=== PATIENT | male | born 1990 ===

== ENCOUNTER 2018-08-21 23:36 | Emergency (ER) | payer MEDICAID ==
[2018-08-21 23:42] VITALS: RESP 18
[2018-08-22] MEDS ORDERED: Lidocaine 1% Inj (20ml) ONE (00:10)
[2018-08-22] MEDS ORDERED: Lidocaine/Epi 1% 1:100000 20 ML IJ ONE (00:21)
[2018-08-22] MEDS ORDERED: Tdap Vaccine 0.5 ml Vial (10-64 yrs) IM ONE ×2 (00:22→00:43)
--- NOTE | 2018-08-22 01:18 | ED PDOC ---
HPI: Trauma/Fall - HPI Time Seen by Provider: 08/21/18 23:46 Chief Complaint (Nursing): Trauma Chief Complaint (Provider): head trauma with laceration History Per: Patient History/Exam Limitations: no limitations Onset/Duration Of Symptoms: Hrs (1) Additional Complaint(s): 27 y/o M with no PMH who presents after fall onto metal steps with head trauma. 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 He states that he was dazed but denies LOC, dizziness, POZO, visual changes, N/V. He further tayler hx of HTN, CAD/NV, asthma. - Fall Fall:Prior To Injury: Tripped. denies: Passed Out, [place] Lightheaded Past Medical History Reviewed: Historical Data, Nursing Documentation, Vital Signs Vital Signs: Last Vital Signs Temp 99.1 F 08/21/18 23:40 Pulse 90 08/21/18 23:40 Resp 18 08/21/18 23:40 BP 145/86 08/21/18 23:40 Pulse Ox 98 08/21/18 23:40 - Medical History PMH: HTN (prior history but no longer and on no meds) Denies: Chronic Kidney Disease - Family History Family History: States: Unknown Family Hx - Social History Current smoker - smoking cessation education provided: No Ex-Smoker (has not smoked in the last 12 months): No Alcohol: None Drugs: Denies - Immunization History Hx Tetanus Toxoid Vaccination: No - Home Medications Home Medications: Ambulatory Orders Medication Instructions Recorded Ibuprofen [Motrin Tab] 600 mg PO Q6H PRN 5 Days tab 08/22/18 - Allergies Allergies/Adverse Reactions: Allergies Allergy/AdvReac Type Severity Reaction Status Date / Time No Known Allergies Allergy Verified 08/21/18 23:39 Review of Systems ROS Statement: Except As Marked, All Systems Reviewed And Found Negative Neurological: Positive for: Headache (localized to Left side of head). Negative for: Weakness, Numbness, Incoordination, Change in Speech, Confusion, Altered Mental Status, Dizziness Physical Exam - Reviewed Nursing Documentation Reviewed: Yes Vital Signs Reviewed: Yes - Physical Exam Appears: Positive for: Well Head Exam: Negative for: ATRAUMATIC (approx 4.5cm linear laceration on Left side of skull, bleeding briskly, associated swelling. ) Skin: Positive for: Normal Color Eye Exam: Positive for: EOMI. Negative for: Nystagmus, Conjunctival injection Neck: Positive for: Normal, Painless ROM Back: Positive for: Normal Inspection Neurologic/Psych: Positive for: Alert, Oriented, Other (strength = in B/L upper and lower extremities). Negative for: Motor/Sensory Deficits - ECG O2 Sat by Pulse Oximetry: 98 Medical Decision Making Medical Decision Making: Scalp francine Tetanus Toradol 30mg IM Procedures - Laceration/Wound Repair Left Head Wound Length (cm): 4.5 Wound's Depth, Shape: superficial, linear Wound Explored: clean Irrigated w/ Saline (ccs): 100 Betadine Prep?: Yes Anesthesia: Lidocaine w/ Epi Volume Anesthetic (ccs): 5 Wound Repaired With: Francine (6) Layer Closure?: No Wound Complexity: Simple Disposition - Clinical Impression Clinical Impression: Laceration of head - Patient ED Disposition Is Patient to be Admitted: No Counseled Patient/Family Regarding: Studies Performed, Diagnosis, Need For Followup, Rx Given - Disposition Disposition: Routine/Home Disposition Time: 02:00 Condition: STABLE Additional Instructions: [place] should be removed in 5 days, can go to PMD or return to ER. Do not wash your hair for 24hrs and then can use gentle soap and water on wound. Keep the area dry. Return to ER if you develop N/V, general POZO, dizziness, visual problems. Prescriptions: Ibuprofen [Motrin Tab] 600 mg PO Q6H PRN 5 Days tab PRN Reason: Pain, Moderate (4-7) Instructions: Minor Head Injury (DC) Forms: [employer] (Hebrew) Print Language: ALGERIAN
[2018-08-22 02:21] VITALS: BP 148/87; PULSE 65; TEMP 98.1; O2SAT 97
== END 2018-08-22 02:05 | disposition home or self-care (01) ==
LOC: H.ER 23:36
DX: S01.01XA Laceration without foreign body of scalp, initial encounter (principal); W01.198A Fall on same level from slipping, tripping and stumbling with subsequent striking against other object, initial encounter; Y93.72 Activity, wrestling; I10 Essential (primary) hypertension; Z87.891 Personal history of nicotine dependence; Z23 Encounter for immunization
CPT/HCPCS: 12002; 90471; 90715; 96372; 99284; J1885

== ENCOUNTER 2018-08-27 14:12 | Emergency (ER) | payer BC, MEDICAID ==
[2018-08-27 14:28] VITALS: TEMP 97.8
--- NOTE | 2018-08-27 14:37 | ED PDOC ---
HPI: Wound Care - HPI Time Seen by Provider: 08/27/18 14:28 Chief Complaint (Nursing): Suture/Staple Removal Chief Complaint (Provider): Staple Removal History Per: Patient Exam Limitations: no limitations Location Of Injury: Left: Head (scalp) Severity: None Additional Complaint(s): 28 year old male with no past medical history presents to the ED for a wound check/staple removal. 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 Patient was evaluated here at that time and damián were placed. Otherwise: (-) pain or swelling at laceration site, (-) wound drainage, (-) fevers. Tetanus is up to date. No other complaints. PMD: Steve Hanson MD Past Medical History Reviewed: Historical Data, Nursing Documentation, Vital Signs Vital Signs: Last Vital Signs Temp 97.8 F 08/27/18 14:27 Pulse 74 08/27/18 14:27 Resp 20 08/27/18 14:27 BP 144/77 08/27/18 14:27 Pulse Ox 99 08/27/18 14:27 - Medical History PMH: No Chronic Diseases - Surgical History Surgical History: No Surg Hx - Family History Family History: States: No Known Family Hx - Social History Current smoker - smoking cessation education provided: Yes (occasionally smokes cigars) - Immunization History Hx Tetanus Toxoid Vaccination: Yes (UTD) - Home Medications Home Medications: Ambulatory Orders Medication Instructions Recorded RX: Ibuprofen [Motrin Tab] 600 mg PO Q6H PRN 5 Days tab 08/22/18 - Allergies Allergies/Adverse Reactions: Allergies Allergy/AdvReac Type Severity Reaction Status Date / Time No Known Allergies Allergy Verified 08/27/18 14:25 Review of Systems ROS Statement: Except As Marked, All Systems Reviewed And Found Negative Skin: Positive for: Other (wound check/staple removal) Physical Exam - Reviewed Nursing Documentation Reviewed: Yes Vital Signs Reviewed: Yes - Physical Exam Comments: GENERAL APPEARANCE: Patient is awake, alert, oriented x 3, resting comfortably, in no acute distress. SKIN: Warm, dry; (-) cyanosis NECK: Supple ENT: Mucus membranes moist. Airway patent, (-) stridor. HEAD: [address] to healing laceration of left parietal scalp (-) scalp swelling or tenderness (-) erythema (-) warmth (-) wound drainage (-) evidence of infection or cellulitis NEURO AND PSYCH: Mental status as above. Gait: steady. Speech: clear. - ECG O2 Sat by Pulse Oximetry: 99 (RA) Pulse Ox Interpretation: Normal Medical Decision Making Medical Decision Makin Clinical impression: 28 year old male in the ED for a wound check and staple removal. -6 Damián removed without difficulty from left parietal scalp by Keyana HERNANDEZ. Patient tolerated procedure well. Educated on wound care. Vitals Stable. Lab/Diagnostic results d/w the patient in great detail. Diagnosis of wound check, staple removal d/w the patient. Based on history, exam and diagnostic results, plan will be for outpatient follow up. Patient instructed to follow-up with pmd / referral provided / the clinic in 1- 2 days without fail. Return to the emergency room at any time for any new or worsening symptoms. Patient states he fully agrees with and understands discharge instructions. States that he agrees with the plan and disposition. Verbalized and repeated discharge instructions and plan. I have given the patient opportunity to ask any additional questions. Scribe Attestation: Documented by Lynne Mancuso, acting as a scribe for Lynne Frias Provider Scribe Attestation: All medical record entries made by the Scribe were at my direction and personally dictated by me. I have reviewed the chart and agree that the record accurately reflects my personal performance of the history, physical exam, medical decision making, and the department course for this patient. I have also personally directed, reviewed, and agree with the discharge instructions and disposition. Disposition - Clinical Impression Clinical Impression: Removal of staple, Scalp laceration, Visit for wound check - Patient ED Disposition Is Patient to be Admitted: No Counseled Patient/Family Regarding: Studies Performed, Diagnosis, Need For Followup - Disposition Disposition: Routine/Home Disposition Time: 14:40 Condition: STABLE Additional Instructions: The emergency medical care you received today was directed at your acute symptoms. If you were prescribed any medication, please fill it and take as directed. It may take several days for your symptoms to resolve. Return to the Emergency Department if your symptoms worsen, do not improve, or if you have any other problems. Please contact your doctor in 2 days for re-evaluation and follow up / or call one of the physicians/clinics you have been referred to that are listed on the Patient Visit Information form that is included in your discharge packet. Bring any paperwork you were given at discharge with you along with any medications you are taking to your follow up visit. Our treatment cannot replace ongoing medical care by a primary care provider (PCP) outside of the emergency department. Instructions: Wound Care, Staple Removal Forms: [employer] (Senegalese) Print Language: BULGARIAN - POA Present On Arrival: None
--- NOTE | 2018-08-27 14:38 | ED PDOC ---
HPI: Wound Care - HPI Time Seen by Provider: 08/27/18 14:28 Chief Complaint (Nursing): Suture/Staple Removal Past Medical History Vital Signs: Last Vital Signs Temp 97.8 F 08/27/18 14:27 Pulse 74 08/27/18 14:27 Resp 20 08/27/18 14:27 BP 144/77 08/27/18 14:27 Pulse Ox 99 08/27/18 14:27 - Medical History PMH: HTN (prior history but no longer and on no meds) Denies: Chronic Kidney Disease - Family History Family History: States: Unknown Family Hx - Immunization History Hx Tetanus Toxoid Vaccination: No - Home Medications Home Medications: Ambulatory Orders Medication Instructions Recorded Ibuprofen [Motrin Tab] 600 mg PO Q6H PRN 5 Days tab 08/22/18 - Allergies Allergies/Adverse Reactions: Allergies Allergy/AdvReac Type Severity Reaction Status Date / Time No Known Allergies Allergy Verified 08/27/18 14:25 - ECG O2 Sat by Pulse Oximetry: 99 Disposition - Disposition
[2018-08-27 15:04] VITALS: BP 140/72; PULSE 70; RESP 16
[2018-08-27 15:20] VITALS: O2SAT 99
== END 2018-08-27 15:05 | disposition home or self-care (01) ==
LOC: H.ER 14:12
DX: Z48.02 Encounter for removal of sutures (principal)